=== PATIENT | male | born 1960 | race Caucasian/White ===

== ENCOUNTER 2016-06-04 20:09 | Emergency (ER) | payer BC ==
[2016-06-04 20:17] VITALS: BP 158/90
[2016-06-04] MEDS ORDERED: Atropine/Diphenoxylate 0.025-2.5 MG Tab PO PRN (21:24)
--- NOTE | 2016-06-04 21:29 | EDM.PDOC ---
ED HPI GI/ABDOMINAL - General Chief Complaint: Gastrointestinal Problem Stated Complaint: nausea, vomiting, diarrhea Time Seen by Provider: 06/04/16 20:31 Source of Information: Reports: Patient History Limitations: Reports: No limitations - History of Present Illness INITIAL COMMENTS - FREE TEXT/NARRATIVE: Started having diarrhea last night about 6 pm and has continued every 20-30 minutes since then. has increase in pain the longer the diarrhea is present. No fever with it. No vomiting. No food that was not eaten by someone else. No contact with sick. States that his cramps have become worse the longer he has it. Does feel some bloating. Has not been on antibiotics recently. Symptom Onset Date: 06/03/16 Symptom Onset Time: 18:00 Location: generalized Quality: Reports: cramping Context: Denies: sick contact, bad/questionable food, out of country travel Associated Symptoms: Reports: diarrhea. Denies: fever/chills, nausea/vomiting - Related Data Allergies/ADRs: Allergies Allergy/AdvReac Type Severity Reaction Status Date / Time cashew nut Allergy Anaphylactic Verified 06/04/16 20:18 Shock esomeprazole magnesium Allergy Itching Verified 06/04/16 20:18 [From Nexium] omeprazole Allergy Itching Verified 06/04/16 20:18 pistachios Allergy Anaphylactic Uncoded 06/04/16 20:18 Shock Home Meds: Home Meds Cyclobenzaprine HCl [Cyclobenzaprine HCl] 10 mg PO BEDTIME PRN 05/23/15 [History ] EPINEPHrine [Epipen 2-Gilles] 0.3 ml IM ASDIRECTED PRN 05/23/15 [History] Ibuprofen [Motrin] 200 mg PO TID PRN 05/23/15 [History] Sildenafil Citrate [Viagra] 1 tab PO DAILY PRN 05/23/15 [History] Loratadine [Claritin] 10 mg PO DAILY 06/04/16 [History] Pantoprazole Sodium [Protonix] 20 mg PO DAILY 06/04/16 [History] Past Medical History HEENT History: Reports: Allergic rhinitis Gastrointestinal History: Reports: GERD Social & Family History - Tobacco Use Smoking Status *Q: Never Smoker Second Hand Smoke Exposure: No - Alcohol Use Days Per Week of Alcohol Use: 2 Number of Drinks Per Day: 2 Total Drinks Per Week: 4 - Recreational Drug Use Recreational Drug Use: No ED ROS GENERAL - Review of Systems Review Of Systems: See Below Constitutional: Denies: fever, chills Respiratory: Denies: Shortness of Breath, Cough Cardiovascular: Denies: Chest pain GI/Abdominal: Reports: Abdominal pain, Diarrhea, Decreased appetite, Flatus. Denies: Nausea, Vomiting Musculoskeletal: Reports: no symptoms Skin: Reports: no symptoms ED EXAM, GI/ABD - Physical Exam Exam: See Below Exam Limited By: No limitations General Appearance: alert, mild distress Ears: normal external exam, normal canal, normal TMs, other (hearing aid in the left.) Nose: normal inspection Throat/Mouth: Normal inspection, Normal oropharynx Head: atraumatic Neck: normal inspection, supple, full range of motion Respiratory/Chest: no respiratory distress, lungs clear, normal breath sounds Cardiovascular: regular rate, rhythm GI/Abdominal: soft, hypoactive bowel sounds (bowel sounds are present to all quadrants.), tenderness (generalized cramping with palpation.). No: guarding, rebound, rigidity Extremities: normal inspection Neurological: alert, oriented Skin Exam: Warm, Dry, Normal color Course - Vital Signs Last Recorded V/S: Last Vital Signs Temp 99.1 F 06/04/16 20:12 Pulse 98 06/04/16 20:12 Resp 20 06/04/16 20:12 BP 158/90 H 06/04/16 20:12 Pulse Ox 98 06/04/16 20:12 - Orders/Labs/Meds Orders: Active Orders 24 hr Category Date Time Status Abdomen 2V AP Flat Upright [CR] Stat Exams 06/04/16 20:36 Taken BASIC METABOLIC PANEL,BMP [CHEM] Stat Lab 06/04/16 20:50 Received UA W/MICROSCOPIC [URIN] Stat Lab 06/04/16 20:50 Received Labs: Laboratory Tests 06/04/16 06/04/16 06/04/16 Range/Units 20:50 20:50 20:50 WBC 5.6 (5.0-10.0) 10^3/uL RBC 5.69 (4.50-6.00) 10^6/uL Hgb 16.6 (14.0-18.0) g/dL Hct 47.2 (40.0-54.0) % MCV 83.0 (82.0-94.0) fL MCH 29.2 (27.0-32.0) pg MCHC 35.2 (33.0-38.0) g/dL RDW Coeff of Alan 13.9 (11.0-15.0) % Plt Count 217 (150-400) 10^3/uL Neut % (Auto) 75.5 (35-85) % Lymph % (Auto) 9.6 L (10-55) % Randolph % (Auto) 14.3 (0-16) % Eos % (Auto) 0.2 (0-5) % Baso % (Auto) 0.4 (0-3) % Neut # (Auto) 4.23 (1.80-7.00) 10^3/uL Lymph # (Auto) 0.54 L (1.00-4.80) 10^3/uL Randolph # (Auto) 0.80 (0.00-0.80) 10^3/uL Eos # (Auto) 0.01 (0.00-0.45) 10^3/uL Baso # (Auto) 0.02 10^3/uL Sodium 140 (136-145) mEq/L Potassium 3.5 (3.5-5.0) mEq/L Chloride 102 (98-106) mEq/L Carbon Dioxide 23 (21-32) mmol/L BUN 21 H (7-18) mg/dL Creatinine 1.3 (0.7-1.3) mg/dL Est Cr Clr Drug Dosing 78.82 mL/min Estimated GFR (MDRD) 57 L (>=60) mL/min Glucose 118 H (75-99) mg/dL Calcium 8.5 (8.4-10.1) mg/dL Total Bilirubin 0.9 (0.0-1.0) mg/dL AST 43 H (15-37) U/L ALT 79 H (12-78) U/L Alkaline Phosphatase 73 (46-116) U/L Total Protein 7.8 (6.4-8.2) g/dL Albumin 4.0 (3.4-5.0) g/dL Urine Color Stefanie (YELLOW) Urine Appearance Clear (CLEAR) Urine pH 5.0 (4.5-8.0) Ur Specific [place] 1.029 H (1.003-1.020) Urine Protein 30 H (NEGATIVE) mg/dL Urine Glucose (UA) Negative (NEGATIVE) mg/dL Urine Ketones Negative (NEGATIVE) mg/dL Urine Occult Blood Negative (NEGATIVE) Urine Nitrite Negative (NEGATIVE) Urine Bilirubin Small H (NEGATIVE) Urine Urobilinogen 0.2 (0.2-1.0) EU/dL Ur Leukocyte Esterase Negative (NEGATIVE) Urine RBC Not seen (0-5) /HPF Urine WBC 0-5 (0-5) /HPF Ur Epithelial Cells Few H (NOT SEEN) /HPF Hyaline Casts Few H (NOT SEEN) /LPF Granular Casts Few (NOT SEEN) /LPF Urine Mucus Moderate H (NOT SEEN) /HPF - Re-Assessments/Exams Free Text/Narrative Re-Assessment/Exam: 06/04/16 21:23 In to discuss the results of xray and labs with the pt and . WBC is low and is most likely viral. Departure - Departure Time of Disposition: 21:26 Disposition: Home, Self-Care 01 Condition: good Clinical Impression: Gastroenteritis Instructions: Viral Gastroenteritis, Adult, [id number] Forms: ED Department Discharge Additional Instructions: take one lomotil tonight and repeat in the morning if diarrhea continues. If pain worsens or if diarrhea does not resolve then recheck in the clinic Sips of fluids frequently to keep hydrated. Slowly start diet with soft easy foods like applesauce and jello Avoid milk and milk products until diarrhea has resolved for at least 48 hours. - Problem List & Annotations (1) Gastroenteritis SNOMED Code(s): 53001481 Code(s): K52.9 - NONINFECTIVE GASTROENTERITIS AND COLITIS, UNSPECIFIED Status: Acute Priority: High Current Visit: Yes - Problem List Review Problem List Initiated/Reviewed/Updated: Yes - My Orders Last 24 Hours: My Active Orders 06/04/16 20:36 Abdomen 2V AP Flat Upright [CR] Stat 06/04/16 20:50 BASIC METABOLIC PANEL,BMP [CHEM] Stat UA W/MICROSCOPIC [URIN] Stat - Assessment/Plan Last 24 Hours: My Active Orders 06/04/16 20:36 Abdomen 2V AP Flat Upright [CR] Stat 06/04/16 20:50 BASIC METABOLIC PANEL,BMP [CHEM] Stat UA W/MICROSCOPIC [URIN] Stat
== END 2016-06-04 21:45 | disposition home or self-care (01) ==
LOC: CC.ED 20:09
DX: K52.9 Noninfective gastroenteritis and colitis, unspecified (principal); K21.9 Gastro-esophageal reflux disease without esophagitis; Z91.018 Allergy to other foods; Z88.8 Allergy status to other drugs, medicaments and biological substances; Z79.899 Other long term (current) drug therapy
CPT/HCPCS: 36415; 74020; 80053; 81001; 85025; 99284

== ENCOUNTER → 2016-08-22 | Day surgery (SDC) | payer BC ==
[~2016-08-22] MED LIST: Lactated Ringers 1,000 ML IV SCH; Propofol 200 MG/20 ML SDV IV ONE
[2016-08-22 11:56] VITALS: BP 129/77
--- NOTE | 2016-08-25 07:56 | OR ---
DATE OF OPERATION: 08/22/2016 PREOPERATIVE DIAGNOSIS: RIGHT LOWER QUADRANT PAIN. POSTOPERATIVE DIAGNOSIS: RIGHT LOWER QUADRANT PAIN. SURGEON: Devon Montalvo MD PROCEDURE: FULL-LENGTH COLONOSCOPY. ANESTHESIA: CLAIM CLERK due to chronic GERD. COMPLICATIONS: None. SPECIMEN: None. FINDINGS: Normal full-length colonoscopy. RECOMMENDATIONS: Medical followup. INDICATIONS: The patient has been having some right lower quadrant pain. We could not find an obvious etiology. CT scan of the abdomen and pelvis is negative. We elected to proceed with colonoscopy. DESCRIPTION OF PROCEDURE: The patient was prepped and draped, placed in the left lateral decubitus position. A lubricated Olympus colonoscope was inserted and safely and easily advanced to the cecum. Direct visualization of the ileocecal valve and appendiceal orifice was accomplished. We were able to intubate into this terminal ileum to evaluate for any inflammatory bowel disease. This was negative. The rest of the cecum, ascending, and transverse colon benign. Throughout the entire left colon, I found no signs of any polyps, masses, ulcerations, or bleeding sites. No vascular abnormalities or signs of colitis. The rectal vault was unremarkable. Retroflexion scope in the rectum showed no perianal lesions. Air was then suctioned. Scope removed without complication. VINCENT/KERRIE /[id number]
== END ==
LOC: CC.SDS 10:10
PROVIDERS: ATTEND Family Medicine
DX: R10.31 Right lower quadrant pain (principal); K21.9 Gastro-esophageal reflux disease without esophagitis; Z88.8 Allergy status to other drugs, medicaments and biological substances; Z91.018 Allergy to other foods; Z79.899 Other long term (current) drug therapy; Z98.52 Vasectomy status; Z72.0 Tobacco use
CPT/HCPCS: 45378; J2704; J7120

== ENCOUNTER → 2016-10-31 | Day surgery (SDC) | payer BC ==
[2016-10-31 09:49] VITALS: BP 129/75
--- NOTE | 2016-10-31 12:54 | OR ---
DATE OF OPERATION: 10/31/2016 PREOPERATIVE DIAGNOSIS: PERSISTENT EPIGASTRIC PAIN. POSTOPERATIVE DIAGNOSIS: PERSISTENT EPIGASTRIC PAIN. SURGEON: Devon Montalvo MD PROCEDURE: ESOPHAGOGASTRODUODENOSCOPY WITH BIOPSIES X5, LUIGI. ANESTHESIA: LEAK INSPECTOR due to chronic GERD. COMPLICATIONS: None. SPECIMEN: 1. Duodenal biopsy x1. 2. Fundal biopsy x2. 3. Antral biopsy x1. 4. LUIGI. 5. Distal esophageal biopsy x1. FINDINGS: 1. Full-length EGD. 2. Chronic and mild diffuse gastritis with mild duodenitis. 3. Hiatal hernia mild in size with active GERD with minimal esophagitis. RECOMMENDATIONS: Medical followup pending path reports. INDICATIONS: Mary Carmen has been having ongoing issues with some epigastric and upper abdominal pain, not improving with medical cares. We elected to proceed with EGD. DESCRIPTION OF PROCEDURE: The patient was prepped and draped, placed in the left lateral decubitus position. A lubricated Olympus gastroscope was inserted over a bit, advanced cricopharyngeus and easily intubated in the esophagus. Esophageal lining appeared unremarkable its entire course. The Z-line was crisp and sharp around 37.5 cm. There was a mild-sized hiatal hernia present with significant spontaneous reflux. One small area of the Z-line showed a little unevenness to the Z-line. I do not think this is necessarily a Graff change, but we did do a biopsy for confirmation. No signs of any significant esophagitis were present. Scope was advanced into the stomach through the pylorus into the second portion of the duodenum. This looked unremarkable. The duodenal bulb had some mild erythematous change which was biopsied x1. No ulceration seen. The scope was brought back into the stomach and retroflexed. The upper fundus and cardia appeared benign. The hernia was visualized from below. Upon straightening, there does appear to be a chronic indolent-appearing gastritis of the fundus and antrum; 2 biopsies of the fundus, 1 of the antrum along with CLOtest were all obtained. There were no signs of any active ulcerations or erosions. No signs of polyps, mass or otherwise. Air was then suctioned. The scope was removed without complication. VINCENT/KERRIE /[id number]
== END ==
LOC: CC.SDS 08:13
PROVIDERS: ATTEND Family Medicine
DX: K21.0 Gastro-esophageal reflux disease with esophagitis (principal); K44.9 Diaphragmatic hernia without obstruction or gangrene; Z88.8 Allergy status to other drugs, medicaments and biological substances; Z91.018 Allergy to other foods; Z79.899 Other long term (current) drug therapy; Z98.52 Vasectomy status; Z80.0 Family history of malignant neoplasm of digestive organs
CPT/HCPCS: 43239; 87081; J2704; J7120

== ENCOUNTER → 2017-09-08 | Day surgery (SDC) | payer BC ==
[~2017-09-08] MED LIST changes: +Ketorolac 30 MG/ML SDV IVPUSH ONE; +Lidocaine 1% 20 ML MDV ONE; +Midazolam 1 MG/ML 2 ML SDV IV ONE; +Rocuronium 50 MG/5 ML Vial IV ONE; +Succinylcholine 200 MG/10 ML MDV IV ONE; +fentaNYL 100 MCG/2 ML SDV IV ONE
--- NOTE | 2017-09-08 12:14 | OR ---
DATE OF OPERATION: 09/08/2017 PREOPERATIVE DIAGNOSIS: ANAL FISSURE. POSTOPERATIVE DIAGNOSIS: ANAL FISSURE. SURGEON: Gume Lobo MD PROCEDURE: LEFT LATERAL INTERNAL SPHINCTEROTOMY. ANESTHESIA: General. ESTIMATED BLOOD LOSS: None. SPECIMEN: None. FINDINGS: Posterior fissure. INDICATIONS: This 57-year-old male has significant rectal pain and defecation. By history, he has an anal fissure. DESCRIPTION OF PROCEDURE: After adequate preparation, a speculum was placed within the anal canal. He does have an ulceration in the posterior midline consistent with an anal fissure. I spot on the patient's left side just above the internal sphincterotomy was chosen. A small incision was made over the sphincter and the mucosa. It was elevated up off the sphincter and incised a short distance to expose the sphincter. Cautery was used to transact the distal three quarters of the sphincter and the mucosa was oversewn using a running 3-0 Vicryl in a locking stitch fashion. No other rectal abnormalities were noted. The patient was taken to recovery room in good condition. QUE/KERRIE /[id number]
[2017-09-08 13:18] VITALS: BP 131/70
== END ==
LOC: CC.SDS 08:16
PROVIDERS: ATTEND Surgery
DX: K60.2 Anal fissure, unspecified (principal); H90.2 Conductive hearing loss, unspecified; Z88.8 Allergy status to other drugs, medicaments and biological substances; Z91.018 Allergy to other foods
CPT/HCPCS: J0330; J1885; J2250; J2704; J3010; J7120

== ENCOUNTER 2018-12-26 16:22 | Emergency (ER) | payer BC ==
[2018-12-26 16:39] VITALS: BP 141/82; PULSE 81
[2018-12-26] MEDS ORDERED: Ketorolac 30 MG/ML SDV ONE (16:47)
[2018-12-26] MEDS ORDERED: Sodium Chloride 0.9% 1,000 ML IV ONE (16:49)
[2018-12-26] MEDS ORDERED: diphenhydrAMINE 50 MG/ML SDV IVPUSH ONE (16:50)
[2018-12-26] MEDS ORDERED: Ondansetron 4 MG/2 ML SDV IVPUSH STA (16:50)
[2018-12-26] MEDS ORDERED: Ketorolac 30 MG/ML SDV IVPUSH ONE (16:50)
--- NOTE | 2018-12-26 18:09 | EDM.PDOC ---
ED HPI GENERAL MEDICAL PROBLEM - General Chief Complaint: General Stated Complaint: eye spasms Time Seen by Provider: 12/26/18 16:49 Source of Information: Reports: Patient History Limitations: Reports: No Limitations - History of Present Illness INITIAL COMMENTS - FREE TEXT/NARRATIVE: This patient is a 58 year old male that presents to the ER. Patient reports started today with a headache pressure behind his right eye with blurred vision , that radiates behind his left eye. Patient reports light makes it worse. Patient reports that nausea. Patient reports that he does have a history of migraines, but has not had one in 6 years. Patient denies any dizziness, lightheaded, weaknesses, unilateral weaknesses, confusion, disorientation. Patient reports also now that his vision is back completely upon arrival to ER. Onset: Today Onset Date: 12/26/18 Onset Time: 15:30 Duration: Hour(s): (2) Location: Reports: Head Quality: Reports: Pressure Severity: Moderate Improves with: Reports: None Worsens with: Reports: None Associated Symptoms: Reports: Headaches. Denies: Confusion, Chest Pain, Cough, cough w sputum, Diaphoresis, Fever/Chills, Loss of Appetite, Malaise, Nausea/ Vomiting, Rash, Seizure, Shortness of Breath, Syncope, Weakness Headache Pain Score (Numeric/FACES): 4 - Related Data Allergies Allergy/AdvReac Type Severity Reaction Status Date / Time cashew nut Allergy Anaphylactic Verified 12/26/18 16:23 Shock esomeprazole magnesium Allergy Itching Verified 12/26/18 16:23 [From Nexium] omeprazole Allergy Itching Verified 12/26/18 16:23 pistachios Allergy Anaphylactic Uncoded 12/26/18 16:23 Shock Home Meds: Home Meds Sildenafil Citrate [Viagra] 1 tab PO DAILY PRN 05/23/15 [History] Ibuprofen 600 mg PO DAILY PRN 10/13/17 [History] Dexlansoprazole [Dexilant] 30 mg PO DAILY 12/26/18 [History] Past Medical History - Past Health History Medical/Surgical History: Denies Medical/Surgical History HEENT History: Reports: Allergic Rhinitis Gastrointestinal History: Reports: GERD Social & Family History - Family History Family Medical History: Noncontributory - Tobacco Use Smoking Status *Q: Never Smoker Second Hand Smoke Exposure: No - Caffeine Use Caffeine Use: Reports: Coffee ED ROS GENERAL - Review of Systems Review Of Systems: See Below Constitutional: Reports: No Symptoms HEENT: Reports: Other (photophobia) Respiratory: Reports: No Symptoms Cardiovascular: Reports: No Symptoms Endocrine: Reports: No Symptoms GI/Abdominal: Reports: Nausea. Denies: Abdominal Pain, Vomiting : Reports: No Symptoms Musculoskeletal: Reports: No Symptoms. Denies: Neck Pain Skin: Reports: No Symptoms Neurological: Reports: Headache. Denies: Confusion, Dizziness, Numbness, Paresthesia, Pre-Existing Deficit, Seizure, Syncope, Tingling, Tremors, Trouble Speaking, Difficulty Walking, Weakness, Change in Speech, Gait Disturbance Psychiatric: Reports: No Symptoms Hematologic/Lymphatic: Reports: No Symptoms Immunologic: Reports: No Symptoms ED EXAM, GENERAL - Physical Exam Exam: See Below Exam Limited By: No Limitations General Appearance: Alert, WD/WN, No Apparent Distress Eye Exam: Bilateral Eye: EOMI, Normal Inspection, PERRL Ears: Normal External Exam, Normal Canal, Hearing Grossly Normal, Normal TMs Ear Exam: Bilateral Ear: Auricle Normal, Canal Normal, TM normal Nose: Normal Inspection, Normal Mucosa, No Blood Throat/Mouth: Normal Inspection, Normal Lips, Normal Teeth, Normal Gums, Normal Oropharynx, Normal Voice, No Airway Compromise Head: Atraumatic, Normocephalic Neck: Normal Inspection, Supple, Non-Tender, Full Range of Motion Respiratory/Chest: No Respiratory Distress, Lungs Clear, Normal Breath Sounds, No Accessory Muscle Use Cardiovascular: Normal Peripheral Pulses, Regular Rate, Rhythm, No Edema, No Gallop, No JVD, No Murmur, No Rub Peripheral Pulses: 2+: Carotid (L), Carotid (R), Radial (L), Radial (R), Posterior Tibial (L), Posterior Tibial (R) GI/Abdominal: Soft, Non-Tender Back Exam: Normal Inspection Extremities: Normal Inspection, Normal Range of Motion, Non-Tender, No Pedal Edema, Normal Capillary Refill Neurological: Alert, Oriented, CN II-XII Intact, Normal Cognition, Normal Gait, No Motor/Sensory Deficits Psychiatric: Normal Affect, Normal Mood Skin Exam: Warm, Dry, Intact, Normal Color, No Rash Course - Vital Signs Last Recorded V/S: Last Vital Signs Temp 98.6 F 12/26/18 16:26 Pulse 81 11/03/19 16:26 Resp 18 12/26/18 16:26 BP 141/82 H 12/26/18 16:26 Pulse Ox 98 12/26/18 16:26 - Orders/Labs/Meds Meds: Medications Discontinued Medications Generic Name Dose Route Start Last Admin Trade Name Eleni PRN Reason Stop Dose Admin Diphenhydramine HCl 12.5 mg 12/26/18 16:50 12/26/18 17:02 Benadryl IVPUSH 12/26/18 16:51 12.5 mg ONETIME ONE Administration Sodium Chloride 1,000 mls @ 1,000 mls/hr 12/26/18 16:49 12/26/18 17:02 Normal Saline IV 12/26/18 17:48 1,000 mls/hr .BOLUS ONE Administration Ketorolac Tromethamine 15 mg 12/26/18 16:50 12/26/18 17:06 Toradol IVPUSH 12/26/18 16:51 15 mg ONETIME ONE Administration Ketorolac Tromethamine Confirm 12/26/18 16:47 12/26/18 17:16 Toradol Administered 12/26/18 16:48 Not Given Dose 30 mg .ROUTE .STK-MED ONE Ondansetron HCl 4 mg 12/26/18 16:50 12/26/18 17:05 Zofran IVPUSH 12/26/18 16:51 4 mg NOW STA Administration - Re-Assessments/Exams Free Text/Narrative Re-Assessment/Exam: 12/26/18 17:00 Believe patient vision complaints or aura related. Presentation consistent with migraine and patient has hx. Discussed with patient and he agrees, ct not warranted. No neuro deficits. Will give medications to help headache, if improves will discharge. If no improvement, will ct. 12/26/18 18:00 Patient reports his headache is much improved and he is ready to go home. Will discharge. Departure - Departure Time of Disposition: 18:07 Disposition: Home, Self-Care 01 Condition: Good Clinical Impression: Migraine Qualifiers: Migraine type: with aura Status migrainosus presence: without status migrainosus Intractability: not intractable Qualified Code(s): G43.109 - Migraine with aura, not intractable, without status migrainosus - Discharge Information *PRESCRIPTION DRUG MONITORING PROGRAM REVIEWED*: Not Applicable *COPY OF PRESCRIPTION DRUG MONITORING REPORT IN PATIENT DEVORAH: Not Applicable Instructions: Migraine Headache, [id number] Forms: ED Department Discharge Additional Instructions: Followup with your primary care provider Return to the ER for worsening of condition or any emergent concerns such as seizures, weaknesses, difficulty with speech, confusion, or other concerns Go home to a dark, quiet, cool room and rest Tylenol, Motrin, OR Excedrin for headaches - Assessment/Plan Plan: PLEASE SEE RN NOTE FOR PFSH.
== END 2018-12-26 18:25 | disposition home or self-care (01) ==
LOC: CC.ED 16:22
DX: G43.109 Migraine with aura, not intractable, without status migrainosus (principal); K21.9 Gastro-esophageal reflux disease without esophagitis; Z79.899 Other long term (current) drug therapy; Z91.018 Allergy to other foods; Z88.8 Allergy status to other drugs, medicaments and biological substances
CPT/HCPCS: 96361; 96374; 96375; 99283-25; J1200; J1885; J2405; J7030

== ENCOUNTER 2019-10-28 10:23 | Emergency (ER) | payer BC ==
[2019-10-28] MEDS ORDERED: Lidocaine 1% with EPINEPHrine 1:100,000 20 ML MDV ONE (10:34)
[2019-10-28] MEDS ORDERED: Diphtheria,Pertussis(Acell),Tetanus Vaccine 0.5 ML Syringe IM ONE (10:35)
[2019-10-28 10:38] VITALS: BP 157/82; PULSE 80
[2019-10-28] MEDS ORDERED: Lidocaine 2% with EPINEPHrine 1:100,000 20 ML MDV INJECT ONE (10:50)
[2019-10-28] MEDS ORDERED: Lidocaine 1% with EPINEPHrine 1:100,000 20 ML MDV INJECT ONE (10:53)
--- NOTE | 2019-10-28 11:32 | EDM.PDOC ---
ED HPI GENERAL MEDICAL PROBLEM - General Chief Complaint: Laceration Stated Complaint: LACERATION Time Seen by Provider: 10/28/19 11:00 Source of Information: Reports: Patient History Limitations: Reports: No Limitations - History of Present Illness INITIAL COMMENTS - FREE TEXT/NARRATIVE: Mary Carmen is a 59 yo male who presents to the ED with c/o laceration to his left ankle. Was cleaning up a tree that fell down and the tree saw fell and landed on his ankle. Has 10 cm laceration to left lateral ankle. Bleeding controlled. ROM intact. Denies any pain, numbness or tingling. Onset: Today, Sudden Onset Date: 10/28/19 Onset Time: 10:30 Location: Reports: Lower Extremity, Left Associated Symptoms: Reports: No Other Symptoms - Related Data Allergies Allergy/AdvReac Type Severity Reaction Status Date / Time cashew nut Allergy Anaphylactic Verified 10/28/19 10:39 Shock esomeprazole magnesium Allergy Itching Verified 10/28/19 10:39 [From Nexium] omeprazole Allergy Itching Verified 10/28/19 10:39 pistachios Allergy Anaphylactic Uncoded 10/28/19 10:39 Shock Home Meds: Home Meds Sildenafil Citrate [Viagra] 1 tab PO DAILY PRN 05/23/15 [History] Ibuprofen 600 mg PO DAILY PRN 10/13/17 [History] Dexlansoprazole [Dexilant] 30 mg PO DAILY 12/26/18 [History] Past Medical History - Past Health History Medical/Surgical History: Denies Medical/Surgical History HEENT History: Reports: Allergic Rhinitis Gastrointestinal History: Reports: GERD, PUD Social & Family History - Family History Family Medical History: Noncontributory - Tobacco Use Smoking Status *Q: Never Smoker Second Hand Smoke Exposure: No - Caffeine Use Caffeine Use: Reports: Coffee - Recreational Drug Use Recreational Drug Use: No ED ROS GENERAL - Review of Systems Review Of Systems: Comprehensive ROS is negative, except as noted in HPI. ED EXAM, SKIN/RASH Exam: See Below Exam Limited By: No Limitations General Appearance: Alert, WD/WN, No Apparent Distress Peripheral Pulses: 2+: Posterior Tibial (L), Dorsalis Pedis (L) Extremities: Normal Range of Motion, Non-Tender, No Pedal Edema, Normal Capillary Refill Neurological: Alert, Oriented, CN II-XII Intact, Normal Cognition, Normal Gait, Normal Reflexes, No Motor/Sensory Deficits Psychiatric: Normal Affect, Normal Mood Skin: Wound/Incision (10cm laceration to left lateral ankle ) Front/Back Body Diagram: 1 - 10 cm laceration ED SKIN PROCEDURES - Laceration/Wound Repair Left Lateral Ankle Appearance: Subcutaneous, Muscle, Linear Distal NVT: Neuro & Vascular Intact, No Tendon Injury Anesthetic Type: Local Local Anesthesia - Lidocaine (Xylocaine): 1% with EPI Local Anesthetic Volume: 5cc Skin Prep: Chlorhexidine (Hibiciens), Providone-Iodine (Betadine) Exploration/Debridement/Repair: Wound Explored, No Foreign Material Found Closed with: Sutures Lac/Wound length In cm: 10 Suture Size: 5-0 # of Sutures: 9 Suture Type: Nylon, Interrupted, Simple Repaired with: Vicryl Sterile Dressing Applied: Provider Tetanus Status Addressed: Yes Complications: No Complication Description: Patient tolerated well Course - Vital Signs Last Recorded V/S: Last Vital Signs Temp 98.1 F 10/28/19 10:35 Pulse 80 10/28/19 10:35 Resp 14 10/28/19 10:35 BP 157/82 H 10/28/19 10:35 Pulse Ox 96 10/28/19 10:35 - Orders/Labs/Meds Orders: Active Orders 24 hr Category Date Time Status Vaccines to be Administered [RC] PER UNIT ROUTINE Care 10/28/19 10:35 Active Ankle 2V Lt [CR] Stat Exams 10/28/19 10:35 Taken Meds: Medications Discontinued Medications Generic Name Dose Route Start Last Admin Trade Name Freq PRN Reason Stop Dose Admin Diphtheria/Tetanus/Acell Pertussis 0.5 ml 10/28/19 10:35 10/28/19 10:55 Adacel IM 10/28/19 10:36 0.5 ml .ONCE ONE Administration Lidocaine/Epinephrine 20 ml 10/28/19 10:50 10/28/19 10:56 Xylocaine 2% With Epinephrine 1:100,000 INJECT 10/28/19 10:51 Not Given ONETIME ONE Lidocaine/Epinephrine 20 ml 10/28/19 10:53 10/28/19 10:56 Xylocaine 1% With Epinephrine 1:100,000 INJECT 10/28/19 10:54 20 ml ONETIME ONE Administration Lidocaine/Epinephrine Confirm 10/28/19 10:34 10/28/19 10:56 Xylocaine 1% With Epinephrine 1:100,000 Administered 10/28/19 10:35 Not Given Dose 20 ml .ROUTE .STK-MED ONE Departure - Departure Time of Disposition: 11:27 Disposition: Home, Self-Care 01 Condition: Good Clinical Impression: Laceration of left ankle Qualifiers: Encounter type: initial encounter Qualified Code(s): S91.012A - Laceration without foreign body, left ankle, initial encounter - Discharge Information *PRESCRIPTION DRUG MONITORING PROGRAM REVIEWED*: Not Applicable *COPY OF PRESCRIPTION DRUG MONITORING REPORT IN PATIENT DEVORAH: Not Applicable Instructions: Laceration Care, Adult, [id number] Referrals: Jad Tapia PA-C [Physician Human Resources Director] - Additional Instructions: - Keep area clean and dry - Ice the next 24 hr as needed for pain/swelling - Tylenol or ibuprofen as needed for pain - May use triple antibiotic ointment as needed - Cover when in dirty conditions - Follow up for suture removal 10 days Sepsis Event Note (ED) - Evaluation Sepsis Screening Result: No Definite Risk - Focused Exam Vital Signs: Vital Signs Temp Pulse Resp BP Pulse Ox 10/28/19 10:35 98.1 F 80 14 157/82 H 96 - Problem List & Annotations (1) Laceration of left ankle SNOMED Code(s): 13393389168311437 Code(s): S91.012A - LACERATION WITHOUT FOREIGN BODY, LEFT ANKLE, INIT ENCNTR Status: Acute Qualifiers: Encounter type: initial encounter Qualified Code(s): S91.012A - Laceration without foreign body, left ankle, initial encounter - My Orders Last 24 Hours: My Active Orders 10/28/19 10:35 Vaccines to be Administered [RC] PER UNIT ROUTINE Ankle 2V Lt [CR] Stat - Assessment/Plan Last 24 Hours: My Active Orders 10/28/19 10:35 Vaccines to be Administered [RC] PER UNIT ROUTINE Ankle 2V Lt [CR] Stat Assessment:: Laceration of Left Ankle Plan: 59 yo male presents to ED with laceration to left ankle. Area closed with 9 simple interrupted sutures. Patient tolerated well. No complications. TDAP administered. Is advised to f/u with PCP in 10 days for suture removal. Discussed instructions for suture care.
== END 2019-10-28 11:51 | disposition home or self-care (01) ==
LOC: CC.ED 10:23
DX: S91.012A Laceration without foreign body, left ankle, initial encounter (principal); K21.9 Gastro-esophageal reflux disease without esophagitis; Z79.899 Other long term (current) drug therapy; Z88.8 Allergy status to other drugs, medicaments and biological substances; Z91.018 Allergy to other foods; Z23 Encounter for immunization; W14.XXXA Fall from tree, initial encounter
CPT/HCPCS: 12044; 73600-LT; 90471; 90715; 99283-25

== ENCOUNTER 2021-09-12 00:23 | Observation (INO) | payer BC ==
[2021-09-12] MEDS ORDERED: Sodium Chloride 0.9% 10 ML Syringe FLUSH PRN (00:41)
[2021-09-12] MEDS ORDERED: Ondansetron 4 MG/2 ML SDV IVPUSH STA (00:41)
[2021-09-12] MEDS ORDERED: HYDROmorphone 0.5 MG/0.5 ML Syringe IVPUSH STA (00:41)
[2021-09-12] MEDS ORDERED: Iopamidol 755 Mg/ML 100 ML Bottle IVPUSH ONE (00:57)
[2021-09-12 01:10] LABS: CHLORIDE,CL 103 mEq/L (98-106); SODIUM,NA 138 mEq/L (136-145)
[2021-09-12 01:12] LABS: ESTIMATED GFR 69 mL/min (>=60)
[2021-09-12] MEDS ORDERED: HYDROmorphone 0.5 MG/0.5 ML Syringe IVPUSH ONE (02:35)
[2021-09-12] MEDS: Sodium Chloride 0.9% 1,000 ML IV SCH ×2 (02:42→10:56)
[2021-09-12] MEDS ORDERED: HYDROmorphone 1 MG/ML Syringe IVPUSH PRN (04:08)
[2021-09-12] MEDS ORDERED: Ondansetron 4 MG/2 ML SDV IV PRN (04:08)
[2021-09-12] MEDS: LORazepam 2 MG/ML Syringe IVPUSH PRN ×2 (04:22→15:28)
[2021-09-12] MEDS ORDERED: Acetaminophen 500 MG Tab PO PRN (19:55)
[2021-09-13 09:59] VITALS: BP 136/77; PULSE 67
== END 2021-09-13 09:48 | disposition home or self-care (01) ==
LOC: CC.ED 00:23 → CC.MS 03:30 → UNDOADMOB 03:30 → CC.MS 03:35
PROVIDERS: ADMIT Nurse Practitioner Family; ATTEND Nurse Practitioner Family
DX: R10.84 Generalized abdominal pain (principal); R14.0 Abdominal distension (gaseous); K56.600 Partial intestinal obstruction, unspecified as to cause; K59.00 Constipation, unspecified; Z79.899 Other long term (current) drug therapy; Z79.83 Long term (current) use of bisphosphonates; Z79.891 Long term (current) use of opiate analgesic; Z98.890 Other specified postprocedural states
CPT/HCPCS: 36415; 43752; 71045; 74018; 74177; 80053; 83690; 85025; 86140; 96361; 96374; 96375; 96376; 99217; 99220; 99285-25; A9270-GY; G0378; J1170; J2060; J2405; J7030; Q9967

== ENCOUNTER → 2022-01-10 | Day surgery (SDC) | payer BC ==
[~2022-01-10] MED LIST changes: +Ketamine 200 MG/20 ML MDV ONE; -Ketorolac 30 MG/ML SDV IVPUSH ONE; -Lidocaine 1% 20 ML MDV ONE; +Lidocaine 2% 20 ML MDV ONE; -Midazolam 1 MG/ML 2 ML SDV IV ONE; +Midazolam 1 MG/ML 2 ML SDV ONE; -Propofol 200 MG/20 ML SDV IV ONE; +Propofol 200 MG/20 ML SDV ONE; -Rocuronium 50 MG/5 ML Vial IV ONE; -Succinylcholine 200 MG/10 ML MDV IV ONE; -fentaNYL 100 MCG/2 ML SDV IV ONE; +fentaNYL 50 MCG/ML SDV ONE
[2022-01-10 08:59] VITALS: BP 120/60; PULSE 86
== END ==
LOC: CC.SDS 06:58
PROVIDERS: ATTEND Family Medicine
DX: Z12.11 Encounter for screening for malignant neoplasm of colon (principal); D12.2 Benign neoplasm of ascending colon; K29.80 Duodenitis without bleeding; K29.50 Unspecified chronic gastritis without bleeding; K44.9 Diaphragmatic hernia without obstruction or gangrene; K64.8 Other hemorrhoids; K21.9 Gastro-esophageal reflux disease without esophagitis; E66.9 Obesity, unspecified; Z80.0 Family history of malignant neoplasm of digestive organs; Z79.899 Other long term (current) drug therapy; Z88.8 Allergy status to other drugs, medicaments and biological substances; Z91.018 Allergy to other foods; Z68.31 Body mass index [BMI] 31.0-31.9, adult
CPT/HCPCS: 00813; 87081; J2250; J2704; J3010; J7120